=== PATIENT | female | born 1970 | race African-American/Black ===

== ENCOUNTER 2018-12-02 17:42 | Emergency (ER) | payer OTHER ==
[~2018-12-02] VITALS: Ht 154.9 cm; Wt 56.8 kg
[~2018-12-02 17:42] MED LIST: NOCURR
[2018-12-02] MEDS ORDERED: HYDROCODONE/ACETAMINOPHEN 5-325 MG TABLET PO ONE (18:30)
[2018-12-02 19:29] VITALS: BP 130/94
== END 2018-12-02 20:10 | disposition home or self-care (01) ==
LOC: EMS 17:43
DX: S09.90XA Unspecified injury of head, initial encounter (principal); F17.210 Nicotine dependence, cigarettes, uncomplicated; Z88.0 Allergy status to penicillin; Z88.8 Allergy status to other drugs, medicaments and biological substances; Y04.2XXA Assault by strike against or bumped into by another person, initial encounter; Y93.89 Activity, other specified; Y92.89 Other specified places as the place of occurrence of the external cause; Y99.8 Other external cause status
CPT/HCPCS: 70450; 70486; 99406